=== PATIENT | female | born 1970 | race Hispanic/Latino ===

== ENCOUNTER → 2021-12-24 | Outpatient (CLI) | payer OTHER | END | disposition home or self-care (01) | LOC: RAH 08:42 | PROVIDERS: ATTEND Internal Medicine Gastroenterology | DX: R07.0 Pain in throat (principal); R13.10 Dysphagia, unspecified | CPT/HCPCS: 74220 ==

== ENCOUNTER → 2023-01-07 | Outpatient (CLI) | payer BC | END | disposition home or self-care (01) | LOC: LAB 14:28 | PROVIDERS: ATTEND Otolaryngology Plastic Surgery within the Head & Neck | DX: H90.3 Sensorineural hearing loss, bilateral (principal) | CPT/HCPCS: 36415; 82565; 84520 ==

== ENCOUNTER → 2023-01-14 | Outpatient (CLI) | payer BC ==
[~2023-01-14] MED LIST: GADOTERATE MEGLUMINE 10 MMOL/20 ML VIAL IV ONE
== END | disposition home or self-care (01) ==
LOC: RAH 07:30
PROVIDERS: ATTEND Otolaryngology Plastic Surgery within the Head & Neck
DX: H90.3 Sensorineural hearing loss, bilateral (principal)
CPT/HCPCS: 70553; A9575

== ENCOUNTER → 2025-03-19 | Outpatient (CLI) | payer BC ==
[~2025-03-19] MED LIST changes: -GADOTERATE MEGLUMINE 10 MMOL/20 ML VIAL IV ONE; +IOHEXOL 350 MG/ML 100ML INFUS..BTL IV ONE
--- NOTE | 2025-03-19 21:24 | HMCIMG ---
EXAM: CT ABDOMEN AND PELVIS WITH AND WITHOUT INTRAVENOUS CONTRAST CLINICAL HISTORY: Left lower quadrant pain. TECHNIQUE: Axial computed tomography images of the abdomen and pelvis were obtained before and after intravenous contrast administration. Multiplanar reformatted images reviewed. CONTRAST: With and without intravenous contrast. COMPARISON: None provided. FINDINGS: LUNG BASES: Mild bronchial wall thickening at segmental and subsegmental levels in both lower lobes, with scattered peribronchial micronodules ??? likely representing mild infectious bronchiolitis. No pleural effusion. LIVER: Normal in size and attenuation. No focal hepatic lesion. GALLBLADDER AND BILIARY TRACT: Surgically absent gallbladder. No intrahepatic or extrahepatic biliary ductal dilatation. PANCREAS: Normal morphology and enhancement. No ductal dilatation or peripancreatic inflammation. SPLEEN: Normal in size and attenuation. ADRENAL GLANDS: Unremarkable bilaterally. KIDNEYS, URETERS, AND BLADDER: Kidneys show normal size and enhancement. No hydronephrosis, hydroureter, or urinary tract calculi. Urinary bladder appears normal. STOMACH AND BOWEL: Stomach is moderately distended but otherwise unremarkable. Mild long-segment wall thickening involving the distal descending and sigmoid colon, extending approximately 12 cm in length with maximal mural thickness of 0.8 cm, associated with mild pericolic vascular prominence ??? suggestive of mild colitis. Uncomplicated colonic diverticulosis present. No bowel obstruction. APPENDIX: Visualized appendix measures approximately 0.4 cm in diameter ??? within normal limits. No periappendiceal inflammation. PERITONEUM: No free air or free fluid. LYMPH NODES: No abdominopelvic lymphadenopathy. REPRODUCTIVE ORGANS: Uterus appears bulky (measuring approximately 9.0 ??? 4.9 ??? 5.4 cm) with heterogeneous myometrial enhancement, possibly due to fibroid changes or adenomyosis. Adnexa unremarkable. VASCULATURE: Mild calcific atherosclerosis of the aortic arch and major abdominal vessels. No aneurysm or thrombus. BONES: No acute or destructive osseous lesion. Mild degenerative thoracic spondylosis noted. OTHER FINDINGS: Bilateral breast implants noted, intact and uncomplicated. IMPRESSION: 1. Mild colitis involving distal descending and sigmoid colon, likely accounting for left lower quadrant pain. 2. Mild infectious bronchiolitis in bilateral lower lobes. 3. No other acute abdominopelvic findings. /[place]
== END | disposition home or self-care (01) ==
LOC: RAH 09:36
PROVIDERS: ATTEND Family Medicine
DX: K52.9 Noninfective gastroenteritis and colitis, unspecified (principal); J21.9 Acute bronchiolitis, unspecified; K57.30 Diverticulosis of large intestine without perforation or abscess without bleeding; I70.0 Atherosclerosis of aorta; R19.04 Left lower quadrant abdominal swelling, mass and lump; M47.817 Spondylosis without myelopathy or radiculopathy, lumbosacral region; Z90.49 Acquired absence of other specified parts of digestive tract; Z98.82 Breast implant status
CPT/HCPCS: 74178; Q9967

== ENCOUNTER → 2025-03-21 | Outpatient (CLI) | payer BC ==
--- NOTE | 2025-03-21 21:37 | HMCIMG ---
EXAM: Chest Radiograph (Frontal and Lateral Views) CLINICAL INDICATION: Evaluation of lung nodule. TECHNIQUE: Frontal and lateral radiographs of the chest. COMPARISON: None available. FINDINGS: Lungs: The lungs are slightly hyperinflated. No focal nodules, masses, or infiltrates are identified. Pleura: No pleural effusion or pneumothorax is seen. Heart and Mediastinum: The cardiac silhouette and mediastinal contours are within normal limits. The trachea is midline. Bones and Soft Tissues: Mild spondylotic changes are noted in the thoracic spine. No acute osseous abnormality is seen. Soft tissues are unremarkable. IMPRESSION: * Slight pulmonary hyperinflation, which may reflect early or mild obstructive airway disease. * No radiographic evidence of lung nodule, mass, or acute cardiopulmonary abnormality. * Mild thoracic spondylotic changes. /[place]
== END | disposition home or self-care (01) ==
LOC: RAH 11:38
PROVIDERS: ATTEND Family Medicine
DX: R91.1 Solitary pulmonary nodule (principal); M47.814 Spondylosis without myelopathy or radiculopathy, thoracic region
CPT/HCPCS: 71046